=== PATIENT | male | born 1955 | race Caucasian/White ===

== ENCOUNTER 2024-03-04 11:28 | Emergency (ER) | payer MEDICARE, BC ==
[2024-03-04] MEDS: Metoprolol Tartrate 25 MG Tab PO ONE (12:38)
[2024-03-04] MEDS ORDERED: Sodium Chloride 0.9% 10 ML Syringe FLUSH PRN (13:01)
== END 2024-03-04 14:43 ==
LOC: FB.ED 11:28
DX: I48.91 Unspecified atrial fibrillation (principal)
CPT/HCPCS: 99285; A9270